=== PATIENT | female | born 1960 | race Caucasian/White ===

== ENCOUNTER → 2016-12-18 | Outpatient (CLI) | payer BC, OTHER ==
[~2016-12-18] MED LIST: ACET-73 PO; CHLO25TA2 PO; CICL34.62 TP; HYOS0.1285 SL; LOSA50TA21 PO; [UNRECOGNIZED DRUG - CODE] TP
[2016-12-18 13:20] LABS: BASOPHILS % (AUTO) 0.3 % (0.0-2.0); EOSINOPHILS # (AUTO) 0.1 K/uL (0.0-0.7); EOSINOPHILS % (AUTO) 0.6 % (0.0-7.0); HEMATOCRIT 36.5 % (37.0-47.0); LYMPHOCYTES # (AUTO) 2.7 K/uL (0.8-4.8); LYMPHOCYTES % (AUTO) 26.5 % (20.5-51.5); MEAN CORPUSCULAR HEMOGLOBIN 25.2 uug (27.0-31.0); MEAN CORPUSCULAR HGB CONC 33 g/dL (32.0-37.0); MEAN CORPUSCULAR VOLUME 76.8 fL (81.0-99.0); MONOCYTES # (AUTO) 0.7 K/uL (0.1-1.30); MONOCYTES % (AUTO) 7.4 % (0.0-11.0); NEUTROPHILS # (AUTO) 6.5 K/uL (1.8-8.9); NEUTROPHILS % (AUTO) 65.2 % (38.5-71.5); PLATELET COUNT (AUTO) 385 K/uL (150-450); RED BLOOD CELL COUNT(AUTO) 4.75 MIL/uL (4.20-5.40); RED CELL DISTRIBUTION WIDTH 14.1 % (11.5-14.5)
== END | disposition home or self-care (01) ==
LOC: LAB 13:01
PROVIDERS: ATTEND Family Medicine
DX: J20.9 Acute bronchitis, unspecified (principal)
CPT/HCPCS: 36415; 85025

== ENCOUNTER 2017-12-13 11:29 | Inpatient (IN) | payer BC, OTHER ==
[~2017-12-13] VITALS: Ht 162.6 cm; Wt 86.2 kg
[~2017-12-13 11:29] MED LIST changes: +HYOS-17 SL; -HYOS0.1285 SL
[2017-12-13] MEDS ORDERED: PANT40TA4 PO (12:49)
[2017-12-13] MEDS ORDERED: ATOR10TA PO (12:49)
[2017-12-13] MEDS ORDERED: IV NORMAL SALINE 1000 ML BAG IV ONE (13:00)
[2017-12-13 13:37] LABS: BASOPHILS % (AUTO) 0.6 % (0.0-2.0); EOSINOPHILS # (AUTO) 0.1 K/uL (0.0-0.7); EOSINOPHILS % (AUTO) 0.8 % (0.0-7.0); HEMATOCRIT 32.6 % (31.2-41.9); HEMOGLOBIN 10.7 g/dL (10.9-14.3); LYMPHOCYTES # (AUTO) 2.4 K/uL (20.0-40.0); MEAN CORPUSCULAR HEMOGLOBIN 25.3 uug (24.7-32.8); MEAN CORPUSCULAR HGB CONC 33 g/dL (32.3-35.6); MONOCYTES # (AUTO) 0.5 K/uL (2.0-10.0); MONOCYTES % (AUTO) 7.8 % (0.0-11.0); NEUTROPHILS # (AUTO) 3.4 K/uL (1.8-8.9); NEUTROPHILS % (AUTO) 53.8 % (38.5-71.5); PLATELET COUNT (AUTO) 265 K/uL (179-408); RED BLOOD CELL COUNT(AUTO) 4.24 MIL/uL (3.63-4.92); WHITE BLOOD COUNT (AUTO) 6.4 K/uL (3.8-11.8)
[2017-12-13 13:45] LABS: *BILIRUBIN,URIN NEGATIVE (NEGATIVE); *BLOOD, URINE Trace-intact (NEGATIVE); *CLARITY,URINE CLEAR (CLEAR); *COLOR,URINE YELLOW (YELLOW); *KETONES,URINE NEGATIVE (NEGATIVE); *PROTEIN,URINE NEGATIVE (NEGATIVE); *UROBILINOGEN,URINE 0.2 E.U./dl (NORMAL); LEUKOCYTE ESTERASE ,URINE NEGATIVE (NEGATIVE); NITRITE, URINE NEGATIVE (NEGATIVE); PH,URINE 7.5 (5.0-8.0); UGLUCOSE NEGATIVE (NEGATIVE)
[2017-12-13 13:50] LABS: CREATININE 1.3 mg/dL (0.6-1.3); POTASSIUM 3.1 mmol/L (3.5-5.1)
[2017-12-13 13:51] LABS: BACTERIA,URINE FEW /HPF (NONE SEEN); RBC,URINE 0-3 /HPF (0-3); SQUAMOUS EPITHELIAL CELL,UR FEW /HPF (NONE SEEN); WBC,URINE 0-3 /HPF (0-3)
[2017-12-13 13:55] LABS: BILIRUBIN,DIRECT 0.2 mg/dL (0.0-0.2); BILIRUBIN,TOTAL 0.7 mg/dL (0.2-1.0); TOTAL PROTEIN, SERUM 7.1 g/dL (6.4-8.2)
[2017-12-13] MEDS ORDERED: POTASSIUM CHLORIDE 20 MEQ TAB.PRT.SR ONE (14:22)
[2017-12-13] MEDS ORDERED: POTASSIUM CHLORIDE 20 MEQ TAB.PRT.SR PO ONE (14:30)
[2017-12-13] MEDS ORDERED: MORPHINE SULFATE 4 MG/1 ML DISP.SYRIN ONE (15:13)
[2017-12-13] MEDS ORDERED: MORPHINE SULFATE 4 MG/1 ML DISP.SYRIN IV ONE (15:15)
[2017-12-13] MEDS ORDERED: ONDANSETRON 4 MG/2 ML VIAL ONE (15:15)
[2017-12-13] MEDS ORDERED: ONDANSETRON 4 MG/2 ML VIAL IV ONE (15:15)
[2017-12-13 15:40] LABS: HEMATOCRIT 30.2 % (31.2-41.9); HEMOGLOBIN 10.1 g/dL (10.9-14.3)
--- NOTE | 2017-12-13 18:19 | NUR ---
pt transfered to floor in stable condition.
[2017-12-13 18:38] VITALS: BP 134/77
--- NOTE | 2017-12-13 18:45 | NUR ---
PATIENT RECEIVED FROM ER [facility]IA [facility] IN STABLE CONDITION, PATIENT IS AMBULATORY ABLE TO TRANSFER INDEPENDENTLY. NURSING ASSESSMENTS DONE, INFORMED DR. MCNEIL ABOUT PATIENT'S ARRIVAL TO UNIT AND NEED ADMISSION ORDERS. WILL ENDORSE ACCORDINGLY.
[2017-12-13] MEDS ORDERED: INFLUENZA VACCINE 2017-2018 0.5 ML DISP.SYRIN IM ONE (19:15)
--- NOTE | 2017-12-13 20:00 | NUR ---
Received pt awake and alert. No c/o pain noted. No respiratory distress noted. Tele noted to be sinus rhythm with HR in 70's. Will continue to monitor. Bed in low, locked position. Call light within reach.
[2017-12-13 20:13] VITALS: BP 120/68
[2017-12-13] MEDS ORDERED: MORPHINE SULFATE 2 MG/1 ML DISP.SYRIN IV PRN (20:30)
[2017-12-13] MEDS ORDERED: ACETAMINOPHEN 650 MG SUPP.RECT RC PRN (20:30)
[2017-12-13] MEDS: POTASSIUM CHLORIDE 20 MEQ in IV D5 1/2 NS 1000 ML 1,000 ML IV PRN (22:02)
[2017-12-13] MEDS: ONDANSETRON 4 MG/2 ML VIAL IV PRN (23:03)
[2017-12-14 04:00] VITALS: BP 114/69
--- NOTE | 2017-12-14 06:53 | NUR ---
Still waiting for pt to provide stool OB, pt aware of this order. No distress noted at this time. Tele noted to be sinus rhythm with HR in the 70's. Pain management provided. Call light within reach
[2017-12-14 07:21] LABS: BASOPHILS % (AUTO) 0.7 % (0.0-2.0); EOSINOPHILS % (AUTO) 0.8 % (0.0-7.0); HEMATOCRIT 32.1 % (31.2-41.9); HEMOGLOBIN 10.4 g/dL (10.9-14.3); LYMPHOCYTES # (AUTO) 1.7 K/uL (20.0-40.0); LYMPHOCYTES % (AUTO) 34.4 % (20.5-51.5); MEAN CORPUSCULAR HGB CONC 33 g/dL (32.3-35.6); MEAN CORPUSCULAR VOLUME 76.7 fL (75.5-95.3); MONOCYTES # (AUTO) 0.4 K/uL (2.0-10.0); MONOCYTES % (AUTO) 8.5 % (0.0-11.0); NEUTROPHILS # (AUTO) 2.7 K/uL (1.8-8.9); NEUTROPHILS % (AUTO) 55.6 % (38.5-71.5); PLATELET COUNT (AUTO) 252 K/uL (179-408); RED BLOOD CELL COUNT(AUTO) 4.18 MIL/uL (3.63-4.92); WHITE BLOOD COUNT (AUTO) 4.8 K/uL (3.8-11.8)
[2017-12-14 07:49] LABS: THYROID STIMULATING HORMONE 1.731 mIU/mL (0.358-3.740)
[2017-12-14 07:55] LABS: BILIRUBIN,TOTAL 0.6 mg/dL (0.2-1.0); CREATININE 1.3 mg/dL (0.6-1.3); MAGNESIUM 1.9 mg/dL (1.8-2.4); PHOSPHOROUS 3.2 mg/dL (2.5-4.9); POTASSIUM 3.4 mmol/L (3.5-5.1); TOTAL PROTEIN, SERUM 6.3 g/dL (6.4-8.2)
--- NOTE | 2017-12-14 08:00 | NUR ---
AWAKE ALERT COOPERATE WELL NO N/V OR PAIN KEEP NPO EXCEPT MEDICINE RESTING WELL WITH CALL JOSEPH IN REACH AND CONTINUE IVF
[2017-12-14] MEDS: PANTOPRAZOLE SODIUM 40 MG VIAL IV SCH (09:06)
--- NOTE | 2017-12-14 10:00 | NUR ---
DR CONLEY WAS INFORM OF CONDITION AND CLEAR LIQ START AT THIS TIME EDUARDA MOD AMT NO N/V OR PAIN
[2017-12-14] MEDS ORDERED: MORPHINE SULFATE 4 MG/1 ML DISP.SYRIN IV PRN (10:15)
[2017-12-14 11:33] VITALS: BP 142/65
--- NOTE | 2017-12-14 12:00 | NUR ---
IV SITE WAS INFILTRATE DISCONTINUE AT THIS TIME ,WILL RESTART LATER AFTER LUNCH REQUEST
--- NOTE | 2017-12-14 14:00 | NUR ---
START NEW IV LINE ON RFA #20 AND CONTINUE IVF PAIN MED GIVEN ORDER FAMILY AT BEDSIDE
[2017-12-14 15:06] VITALS: BP 133/72
[2017-12-14] MEDS ORDERED: BISACODYL 5 MG TABLET.DR PO ONE (15:45)
[2017-12-14] MEDS ORDERED: GOLYTELY 4000 ML BOTTLE PO ONE (15:45)
[2017-12-14] MEDS ORDERED: POTASSIUM CHLORIDE 20 MEQ TAB.PRT.SR PO ONE (16:00)
[2017-12-14] MEDS: MAGNESIUM CITRATE 296 ML BOTTLE PO SCH ×2 (16:25→20:12)
--- NOTE | 2017-12-14 16:25 | NUR ---
START COLONOSCOPY PREP MEDICATION GIVEN EDUARDA WELL NO N/V NO PAIN
--- NOTE | 2017-12-14 17:15 | NUR ---
STABLE HEMODYNAMIC STATUS PAIN UNDER CONTROL NO ACUTE DISTRESS SAFETY MEASURE PROVIDED CALL LIGHT IN REACH CONSENT FOR EGD AND COLONOSCOPY SIGNS AND EDUARDA PREP WELL
--- NOTE | 2017-12-14 18:00 | NUR ---
STATE HAVING BM X3 BUT STILL DOES NOT CLEAR YET CONTINUE DRINKING GOLITELY WELL
[2017-12-14] MEDS: ONDANSETRON 4 MG/2 ML VIAL IV PRN (18:55)
--- NOTE | 2017-12-14 19:30 | NUR ---
Received patient sitting comfortably in bed. No acute distress noted. Patient is A&O x 4. TELE Sinus Rhythm. No c/o of pain at the moment. Verified code status, patient wishes to be full code. Patient's BM is still not clear at the moment. Encourage to drink go lytely. Patient is on clear liquid diet. Safety initiated. Call light within reach. Room is kept clutter free. Bed is on low and locked position. Will continue to monitor.
[2017-12-14 20:49] VITALS: BP 127/72
[2017-12-14 21:02] LABS: *OCCULT BLOOD STOOL NEGATIVE (NEGATIVE)
[2017-12-15 00:19] VITALS: BP 150/85
[2017-12-15] MEDS: POTASSIUM CHLORIDE 20 MEQ in IV D5 1/2 NS 1000 ML 1,000 ML IV PRN ×2 (00:43→14:43)
[2017-12-15 04:38] VITALS: BP 141/87
--- NOTE | 2017-12-15 05:33 | NUR ---
Patient slept t/o shift. Kept NPO after midnight. IVF infusing. Patient's stool is clear with tiny stool residue. Vital signs stable. No c/o pain and SOB. No acute distress noted. Safety and comfort measures maintained t/o shift. All meds given as ordered. All needs met.
--- NOTE | 2017-12-15 05:38 | NUR ---
TELE Sinus Rhythm at 80.
--- NOTE | 2017-12-15 08:00 | NUR ---
ASSIST TO TAKE SHR THIS AM SCHEDULE FOR EGD AND COLONOSCOPY TODAY CONSENT SIGNS AND CHECK LIST COMPLETE FAMILY AT BEDSIDE NO PAIN OR N/V CONTINUE IVF AND NPO
[2017-12-15] MEDS: PANTOPRAZOLE SODIUM 40 MG VIAL IV SCH (08:39)
--- NOTE | 2017-12-15 09:00 | NUR ---
SURGERY EGD AND COLONOSCOPY WAS SCHEDULE AT 4PM TODAY
[2017-12-15 11:27] VITALS: BP 136/71
--- NOTE | 2017-12-15 15:30 | NUR ---
TO GI LAB VIA BED CONDITION STABLE
[2017-12-15 15:34] VITALS: BP 111/63
[2017-12-15] MEDS ORDERED: POTASSIUM CHLORIDE 20 MEQ in IV D5 1/2 NS 1000 ML 1,000 ML IV PRN (17:15)
[2017-12-15 17:40] VITALS: BP 105/52
--- NOTE | 2017-12-15 17:40 | NUR ---
BACK TO ROOM AWAKE COOPERATE VS TAKEN STABLE CONTINUE ON IVF AND START DIET THIS EVENING PO FLD EDUARDA MOD AMT NO PAIN OR N/V RESTING WITH CALL LIGHT IN REACH
--- NOTE | 2017-12-15 18:00 | NUR ---
EAT DINNER MOD AMT NO N/V OR PAIN FAMILY AT BEDSIDE
--- NOTE | 2017-12-15 18:20 | NUR ---
STABLE HEMODYNAMIC STATUS PAIN AND NAUSEA UNDER CONTROL SAFETY MEASURE PROVIDED CALL LIGHT IN REACH
--- NOTE | 2017-12-15 19:30 | NUR ---
Received patient walking up and down the porter way with family member by her side. Stable gait. IVF infusing. Patient is in no acute distress. No c/o of pain or SOB or dizziness. Per MD, if patient walks around without any distress, vital signs stable, may consider for D/C tonight. Safety initiated. Call light within reach. Room is kept clutter free. Bed is in low and locked position. Will continue to monitor.
[2017-12-15 20:30] VITALS: BP 123/72
[2017-12-15] MEDS ORDERED: PROPOFOL 200 MG/20 ML BOTTLE IV ONE (21:03)
[2017-12-15] MEDS ORDERED: IV LACTATED RINGERS SOLUTION 1,000 ML BAG IV ONE (21:03)
[2017-12-15] MEDS ORDERED: LIDOCAINE HCL 2% 20 ML VIAL MC ONE (21:03)
--- NOTE | 2017-12-15 21:25 | NUR ---
Patient D/C in stable condition. Vital signs stable. No acute distress noted. No c/o pain, sob or dizziness. D/C protocol followed. All needs met.
== END 2017-12-15 21:04 | disposition home or self-care (01) | DRG 393 ==
LOC: ER 11:29 → TELE 18:16
PROVIDERS: ADMIT Internal Medicine; ATTEND Internal Medicine
PROC: 0DB68ZX Excision of Stomach, Via Natural or Artificial Opening Endoscopic, Diagnostic (ICD-10-PCS; principal; 2017-12-15 16:07)
PROC: 0DBH8ZX Excision of Cecum, Via Natural or Artificial Opening Endoscopic, Diagnostic (ICD-10-PCS; principal; 2017-12-15 16:07)
DX: K64.8 Other hemorrhoids (principal); K29.01 Acute gastritis with bleeding; I11.0 Hypertensive heart disease with heart failure; I50.32 Chronic diastolic (congestive) heart failure; K58.9 Irritable bowel syndrome, unspecified; E66.9 Obesity, unspecified; K21.9 Gastro-esophageal reflux disease without esophagitis; K44.9 Diaphragmatic hernia without obstruction or gangrene; Z68.32 Body mass index [BMI] 32.0-32.9, adult; Z90.710 Acquired absence of both cervix and uterus; Z82.49 Family history of ischemic heart disease and other diseases of the circulatory system; E87.6 Hypokalemia; E78.5 Hyperlipidemia, unspecified; G89.29 Other chronic pain; M10.9 Gout, unspecified; M54.9 Dorsalgia, unspecified; M19.90 Unspecified osteoarthritis, unspecified site; Z94.5 Skin transplant status; Z87.11 Personal history of peptic ulcer disease; K31.7 Polyp of stomach and duodenum; D53.9 Nutritional anemia, unspecified
CPT/HCPCS: 36415; 43235; 70030-TC; 71045; 83550; 83690; 83735; 84100; 84443; 85018; 85025; 85730; 86850; 86900; 86901; 88342; 93005; A4217; A4663; C9113; J2270; J2405; J3480; J3490; J7030; J7120

== ENCOUNTER 2025-09-25 11:04 | Emergency (ER) | payer BC, OTHER ==
[~2025-09-25] VITALS: Ht 157.5 cm; Wt 86.2 kg
[~2025-09-25 11:04] MED LIST changes: -ACET-73 PO; +ATOR10TA PO; -CICL34.62 TP; -LOSA50TA21 PO; +LOSA50TA39 PO; +PANT40TA49 PO; -[UNRECOGNIZED DRUG - CODE] TP
[2025-09-25 11:09] VITALS: BP 165/80
[2025-09-25] MEDS ORDERED: CEPH500C2 PO (11:41)
[2025-09-25] MEDS ORDERED: PHEN-704 PO (11:41)
[2025-09-25 11:55] VITALS: BP 148/78; TEMP 98; O2SAT 97
== END 2025-09-25 11:57 | disposition home or self-care (01) ==
LOC: ER 11:04
DX: R30.0 Dysuria (principal); N39.0 Urinary tract infection, site not specified; E78.5 Hyperlipidemia, unspecified; M10.9 Gout, unspecified; Z79.899 Other long term (current) drug therapy; Z87.11 Personal history of peptic ulcer disease; Z88.7 Allergy status to serum and vaccine; Z90.710 Acquired absence of both cervix and uterus